=== PATIENT | male | born 1990 ===

== ENCOUNTER 2024-07-14 06:43 | Emergency (ER) | payer OTHER, SELFPAY ==
--- NOTE | ~2024-07-14 | XR_ITS ---
EXAMINATION: XR FINGER, RIGHT CLINICAL INFORMATION: Laceration/wound COMPARISON: None available. TECHNIQUE: 3 views of the right fifth digit.. FINDINGS: The bones and soft tissues are normal. No fracture. Alignment is anatomic. Joint spaces are maintained. XR/XR finger RT min 2V IMPRESSION: Normal fifth finger radiographs. Electronically signed by: Israel Whelan MD 07/14/2024 08:10 AM EST
[2024-07-14 06:46] VITALS: BP 120/80; PULSE 67; RESP 14; TEMP 36.5; O2SAT 97; BMI 20.4
--- NOTE | 2024-07-14 07:17 | PC.NURSE ---
pt a&ox3,c/o 01/08 pain to rt pinky finger, approx 1 cm, pt unsure last tetanus.
[2024-07-14] MEDS: Lidocaine HCl 1 % MPF 5 ML VIAL INFILTRATI (07:43)
[2024-07-14] MEDS: Diphth,Pertus(ACell),Tet Adult 0.5 ML SYRINGE IM (07:43)
--- NOTE | 2024-07-14 07:45 | PC.NURSE ---
pt medicated per order,provider to administer lido
--- NOTE | 2024-07-14 08:23 | ED_ITS ---
HPI - Wound/Laceration General Chief Complaint: Wound/Laceration Stated Complaint: finger lac/swollen Time Seen by Provider: 07/14/24 07:10 Source: patient, RN notes reviewed and old records reviewed Mode of arrival: ambulatory History of Present Illness ED Provider: Evi Carlos PA-C HPI narrative: 33-year-old male with no significant past medical history presenting to the ED complaining of laceration to right 5th digit s/p crushing hand between wrench and floor while switching snow-blower tire a few hours ago. Tetanus unknown/out of date. Denies injury to other area or suspected retained foreign body Related Data Allergies Allergy/AdvReac Type Severity Reaction Status Date / Time No Known Allergies Allergy Verified 07/14/24 06:50 Review of Systems Review of Systems: Yes all other systems are reviewed and are negative Constitutional: Constitutional: Reports as per [facility] Past Medical History Attestation statement: The following information was validated with the patient. Source: old records reviewed Social History Social History Advance Directives: No Advance Directives Information Provided: No Do you have a plan to hurt others: No Plan Physical Exam Vital Signs: Vital Signs: Last Vital Signs Temp 97.5 F 07/14/24 09:15 Pulse 66 07/14/24 09:15 Resp 15 07/14/24 09:15 BP 111/70 07/14/24 09:15 Pulse Ox 99 07/14/24 09:15 O2 Del Method Room Air 07/14/24 09:15 BMI result Body Mass Index 20.4 Const: General: cooperative, healthy appearing and no acute distress Orientation/consciousness: patient oriented x3 Limitations: no limitations HEENT: Head: Yes normal to inspection and Yes atraumatic Ears: hearing grossly normal bilaterally General nose exam: Normal external nose present Face and sinus: Yes normal facial exam Eyes: General: appearance normal, both eyes and all related structures EOM: EOMs intact bilaterally Neck: Neck: Yes normal visual inspection and Yes no meningeal signs Resp: Effort & Inspection: normal respiratory effort and no respiratory distress Cardio: Rate: regular rate Skin: Other: + 1 cm laceration noted to palmar aspect of right distal 5th digit with subcutaneous tissue present. Bleeding controlled. No palpable foreign body. Full range of motion intact and sensation intact to light touch. Fing er-to-thumb opposition intact Wounds: no wounds Neuro: General: patient oriented x3, tone normal and no meningeal signs Cranial nerves: Yes CN's II-XII intact bilaterally Gait exam (Neuro): Normal gait present Extrem: General: Yes normal to inspection Course Course Course Narrative: XR finger RT min 2V IMPRESSION: Normal fifth finger radiographs. Results discussed with patient including worrisome signs and symptoms and strict return precautions, and when to return to the emergency department. They verbalized understanding and feel safe for discharge at this time. Medications Administered Discontinued Medications Generic Name Dose Route Start Last Admin Trade Name Freq PRN Reason Stop Dose Admin Bacitracin 1 appl 07/14/24 08:59 07/14/24 09:06 Bacitracin Oint 0.9 Gm Packet TOPICAL 07/14/24 09:00 1 appl ONCE ONE Administration Protocol Diphtheria/Tetanus/Acell Pertussis 0.5 ml 07/14/24 07:31 07/14/24 07:43 Diphth,Pertus(Acell),Tet Adult 0.5 Ml Syringe IM 07/14/24 07:32 0.5 ml .ONCE ONE Administration Lidocaine HCl 5 ml 07/14/24 07:31 07/14/24 07:43 Lidocaine Hcl 1 % Mpf 5 Ml Vial INFILTRATI 07/14/24 07:32 5 ml ONCE ONE Administration Medical Decision Making Medical Decision Making [facility] Narrative: 33-year-old male with no significant past medical history presenting to the ED complaining of laceration to right 5th digit s/p crushing hand between wrench and floor while switching snow-blower tire a few hours ago. On exam vital signs stable, NAD, nontoxic appearing, physical exam as noted above. Rule out retained foreign body and fracture/crush injury. Wound will need suture repair Plan: X-ray, update tetanus, wound repair Please refer to course for remaining clinical decision making, interpretation of labs/imaging results, and discussions with consultants and/or family members. Differential Diagnosis Differential Diagnoses: The differential diagnosis associated with the presentation includes As above Independent Interpretation I performed an independent interpretation of an: Plain X-Ray Radiology Impression Discussion of test interpretation with radiology: I have reviewed the radiologist's reading. External Record Review External record reviewed: Inpatient record, Office record, Outpatient record, Prior outpatient labs, Prior outpatient radiology, Primary care record and Outside ED record Tests considered The following testing was considered but not selected: As above Prescription Management I considered prescription management with: Pain Medication and Antibiotic Social Determinants Patient?s care significantly limited by Social Determinants of Health including: Other Social Determinant of Health Procedures Laceration Laceration 1: Site: hand Side (If applicable): right Size (cm): 1 Description: linear Depth: simple, single layer Local Anesthetic: lidocaine 1% Amount of anesthesia used (mL): 3 Pre-repair: wound explored Skin layer closed with: nylon Size (cm): 5-0 Number of sutures: 3 Technique: simple, interrupted Discharge Plan Discharge Clinical Impression: Laceration Patient Disposition: Home, Self-Care Instructions: Finger Laceration (ED) Additional Instructions: Your wounds were repaired today in the emergency department. Keep dry and clean. You need to return to any emergency department, urgent care, or your PCPs office in 7-10 days for suture removal Apply bacitracin and or Neosporin daily Once sutures are removed apply anti scar cream like Mederma If area begins look infected, is red, there is drainage, streaking, or you have fever please return to the emergency department Referrals: ED Physician,Generic [Physician] - 1 week Interventions: ED Discharge Assessment Last Done: 07/14/24 09:15 Discharge Date/Time: 07/14/24 09:15 Print Language: Turkish
[2024-07-14 08:55] VITALS: BP 111/70; PULSE 66; RESP 15; TEMP 36.4; O2SAT 99
[2024-07-14] MEDS: Bacitracin Oint 0.9 GM PACKET 1 APPL TOPICAL (09:06)
[2024-07-14 09:15] VITALS: BP 111/70; PULSE 66; RESP 15; TEMP 36.4; O2SAT 99
== END 2024-07-14 09:15 | disposition home or self-care (01) ==
PROVIDERS: Emergency Provider Emergency Medicine
DX: S61.216A Laceration without foreign body of right little finger without damage to nail, initial encounter (principal); W23.0XXA Caught, crushed, jammed, or pinched between moving objects, initial encounter; Y93.89 Activity, other specified; Y92.9 Unspecified place or not applicable; Y99.9 Unspecified external cause status; Z23 Encounter for immunization
CPT/HCPCS: 12001; 73140; 90471; 90715; 99283; 99284; J2003